=== PATIENT | male | born 1985 | race African-American/Black ===

== ENCOUNTER 2017-04-03 13:03 | Emergency (ER) | payer MEDICAID ==
[~2017-04-03] VITALS: Ht 172.7 cm; Wt 75.0 kg
[2017-04-03] MEDS ORDERED: MORPHINE SULFATE 4 MG/ML CPJ (NOT FOR IM USE) IV STA (15:01)
[2017-04-03 15:29] LABS: BASOPHILS % 0.2 % (0.0-2.0); EOSINOPHILS % 0.4 % (0.0-5.0); HEMATOCRIT. 41.9 % (42.0-52.0); HEMOGLOBIN. 14.3 g/dL (14.0-18.0); LYMPHOCYTES % 11.5 % (20.0-50.0); MEAN CORPUSCULAR HEMOGLOBIN 33.8 pg (28.0-32.0); MEAN CORPUSCULAR VOLUME 99.3 fL (80.0-94.0); MEAN PLATELET VOLUME 7.2 fl (7.4-10.4); NEUTROPHILS % 80.9 % (40.0-76.0); PLATELET 207 x1000/uL (130-400); RED BLOOD CELL COUNT 4.22 mill/uL (4.7-6.1); RED CELL DISTRIBUTION WIDTH 13.8 % (11.6-14.6)
[2017-04-03 15:31] LABS: CHLORIDE 105 mEq/L (98-107)
[2017-04-03 15:32] LABS: PROTHROMBIN TIME 10.7 sec (9.4-11.6)
[2017-04-03 15:34] LABS: CARBON DIOXIDE 31 mEq/L (21-32)
[2017-04-03] MEDS ORDERED: LIDOCAINE HCL 1% 20ML VIAL (Pyxis) INJ MC ONE (16:30)
[2017-04-03 18:19] VITALS: BP 121/68
== END 2017-04-03 20:22 | disposition home or self-care (01) ==
LOC: ER 13:36
DX: K61.0 Anal abscess (principal); R01.1 Cardiac murmur, unspecified; F17.210 Nicotine dependence, cigarettes, uncomplicated; F12.10 Cannabis abuse, uncomplicated; Z71.6 Tobacco abuse counseling; Z87.828 Personal history of other (healed) physical injury and trauma
CPT/HCPCS: 36415; 46050; 74176; 80053; 83690; 85025; 85610; 96374; 99285; 99406; J2270; J3490; Z7610